=== PATIENT | female | born 1975 | race Native Hawaiian/Other Pacific Islander ===

== ENCOUNTER 2017-10-26 07:02 | Observation (INO) | payer BC ==
[2017-10-18 09:02] VITALS: BMI 20.8
[2017-10-26] MEDS ORDERED: Propofol 10 mg/ml Inj (20 ML) ONE ×2 (07:10→12:15)
[2017-10-26] MEDS ORDERED: ePHEDrine 50 mg/ml Inj ONE (07:10)
[2017-10-26] MEDS ORDERED: Midazolam 2 MG/2 ML VIAL ONE (07:10)
[2017-10-26] MEDS ORDERED: Rocuronium 10 mg/ml (5 ml) ONE ×2 (07:11→10:36)
[2017-10-26] MEDS ORDERED: Succinylcholine 200 mg/10 ml Inj IV ONE (07:11)
[2017-10-26] MEDS ORDERED: Lidocaine 2% MPF (5 ml) Inj ONE (07:16)
[2017-10-26] MEDS ORDERED: Phenylephrine 10 mg/ml Inj ONE (07:25)
[2017-10-26] MEDS ORDERED: Bupivacaine 0.5% Inj(30mL) ONE (08:10)
[2017-10-26] MEDS ORDERED: Sevoflurane - Inhalation Anesthetic Liq (250 ml) ONE (08:32)
[2017-10-26] MEDS ORDERED: Lactated Ringer's 1,000 ML IV ONE ×2 (08:35→08:45)
[2017-10-26] MEDS ORDERED: Sodium Chloride 0.9% 1,000 ML IV ONE ×2 (08:55→12:20)
[2017-10-26] MEDS: Vasopressin 20 Units/ml Inj ONE ×2 (09:34→09:50)
[2017-10-26] MEDS: HYDROmorphone 0.5 mg/0.5 ml ISec IVP PRN ×2 (13:00→13:15)
[2017-10-26] MEDS ORDERED: Lactated Ringer's 1,000 ML IV SCH (13:30)
[2017-10-26 14:51] LABS: HEMOGLOBIN 12.6 g/dL (12.0-16.0); MEAN CELL VOLUME 92.3 fl (81.0-99.0); MEAN CORPUSCULAR HEMOGLOBIN 30.4 pg (27.0-31.0); MEAN CORPUSCULAR HGB CONC 32.9 g/dL (33.0-37.0); RBC 4.15 Mil/uL (3.80-5.20)
[2017-10-26 14:55] LABS: WHITE BLOOD COUNT 14.9 K/uL (4.8-10.8)
[2017-10-26] MEDS: cefOXitin IV 1 gm in Dextrose 1 GM/50 ML BAG IVPB SCH (17:21)
[2017-10-26] MEDS ORDERED: Influenza Vaccine 18yr & older 0.5 ML/45 MCG SYR IM ONE (18:00)
[2017-10-26] MEDS ORDERED: Pneumococcal 23-Valent Vaccine IM ONE (18:00)
--- NOTE | 2017-10-26 23:51 | OP ---
PROCEDURE DATE: PREOPERATIVE DIAGNOSIS: Symptomatic fibroid uterus. POSTOPERATIVE DIAGNOSIS: Symptomatic fibroid uterus. OPERATION PERFORMED: Robotic-assisted myomectomy, hysteroscopy. SURGEON: Murray Oneill MD REGISTRATION SCHEDULING SPECIALIST: Jeramie Patrick DO. He was instrumental in the care of the patient, he created exposure, he was helpful in obtaining hemostasis and extraction of the specimen. The procedure would not have been possible without his assistance. TYPE OF ANESTHESIA: General. ANESTHESIA ADMINISTERED BY: Karen Villalba MD ESTIMATED BLOOD LOSS: 300 mL. IV FLUID INTAKE: The patient received approximately 1500 mL of D5 LR intraoperatively. URINE OUTPUT: Approximately 100 mL of clear urine. OPERATIVE FINDINGS: Irregularly contoured uterus. Normal ovaries and tubes. Hysteroscopy revealed a normal uterine cavity, no intracavitary fibroids identified both ostia were visualized. DESCRIPTION OF PROCEDURE: After informed consent was obtained, the patient was then taken to the operating room where she was given general anesthesia. She was then prepped and draped in the normal sterile fashion. An 8-mm umbilical incision was made. The abdomen was tented upwards and Veress needle was inserted into abdominal cavity. The abdomen was then insufflated to 15 mmHg. An 8 mm robotic trocar was then introduced into the abdominal cavity and placement was confirmed with a laparoscope. The abdomen was then surveyed with the findings noted above. The patient was then placed in steep Trendelenburg. Attention was then turned to the right lower quadrant approximately 3 cm superior to the anterior iliac crest. Marcaine was infused. An 8 mm incision was made. A robotic trocar was introduced into the abdomina cavity under direct visualization. Similar procedure was performed on the left. Attention was then turned to approximately 10 cm right and lateral to the umbilicus. Marcaine was infused and an 8 mm robotic port was introduced to abdominal cavity. Attention was then turned to the left side where a 5 mm port was introduced for the assist. The patient was in Trendelenburg, the table was lowered. The robot was brought along the patient's side and docked without complication. The instruments used for the surgery were PK dissector, scissors, Hugo SutureCut and ProGrasp. The instruments were inserted into the patient's abdomen. I then broke scrub and proceeded to the surgical console. Attention was then turned to the prominent anterior myoma, it was injected with Pitocin and scored with the scissor. The fibroid was then grasped with the tenaculum, it was enucleated using both sharp and blunt dissection. Attention was then turned to the posterior fibroid, which in a similar fashion was injected with Pitocin and it was scored with the scissor then enucleated using the series of both sharp and blunt dissection. There were several smaller fibroids that were extracted on the incision. Attention was then turned to the fundal myoma, which was scored and extracted using both sharp and blunt dissection. The uterine defect was then repaired with 2-0 on a barbed suture. The abdomen was then copiously irrigated. The irrigant was removed with a suction device and hemostasis was noted. The fibroids extracted were approximately 12 in number. They were placed in a Endo bag. We then proceeded to suprapubic region approximately 2 cm above the symphysis pubis. A 2-inch incision was made and carried down to the fascia. The fascia was then nicked in the midline. The fascial incision was then extended laterally. Muscles were , the peritoneum identified and entered sharply with the Metzenbaum scissors. The fibroids were extracted to the incision. All fibroid counts were correct. All sponge, lap, needle, and instrument counts were correct. The suprapubic incision was repaired with 0-Vicryl in a running fashion. The skin was closed with 4-0 on a Luis needle. All robotic ports were glued with Dermabond. All sponge, lap, needle, and instrument counts were correct x2, and the patient was taken to the recovery room in awake and stable condition. Murray Oneill MD HANSEL
[2017-10-27] MEDS: cefOXitin IV 1 gm in Dextrose 1 GM/50 ML BAG IVPB SCH ×2 (01:52→09:59)
[2017-10-27] MEDS ORDERED: Oxycodone/Acetaminophen 5/325 mg Tab PO PRN (08:36)
--- NOTE | 2017-10-27 09:10 | CP.SDSHP ---
Same Day Surgery H & P - Allergies Allergies: Allergies Sulfa (Sulfonamide Antibiotics) Allergy (Verified 10/26/17 07:16) RASH - Physical Exam Vital Signs: Vital Signs 10/27/17 10/27/17 05:50 08:27 Temperature 99.1 F 98.2 F Pulse Rate 72 74 Respiratory 20 18 Rate Blood Pressure 104/61 109/67 O2 Sat by Pulse 99 97 Oximetry Short Stay Discharge - Short Stay Discharge Admitting Diagnosis/Reason for Visit: D25.9/R10.2 Referrals: FAMILY PROVIDER,NO [Primary Care Provider] - Follow-up: s/p myomectomy d/c home NPV no heavy lifting meds provided percocet motrin and colace
[2017-10-27 13:24] VITALS: BP 110/61; PULSE 65; RESP 20; TEMP 98; O2SAT 98
== END 2017-10-27 13:25 | disposition home or self-care (01) ==
LOC: H.OPSURG 07:02 → H.MEDSURG1 13:28
PROVIDERS: ADMIT Obstetrics & Gynecology Gynecology; ATTEND Obstetrics & Gynecology Gynecology
DX: D25.9 Leiomyoma of uterus, unspecified (principal); Z88.2 Allergy status to sulfonamides; Z23 Encounter for immunization
CPT/HCPCS: 36415; 58546; 85027; 86850; 86900; 88305; 90732; 94770; G0008; G0009; G0378; J0330; J0690; J0694; J1170; J2250; J2370; J2405; J2704; J2765; J3010; J7030; J7040; J7120; Q2035